=== PATIENT | female | born 1950 | race Caucasian/White ===

== ENCOUNTER 2017-10-06 15:04 | Inpatient (IN) | payer OTHER ==
[~2017-10-06] VITALS: Ht 154.9 cm; Wt 69.6 kg
[2017-10-06 15:14] LABS: BASOPHIL (%) 0.2 % (0-1); EOSINOPHIL COUNT 0.2 K/uL (0-0.3); HEMATOCRIT 43.9 % (36.0-46.0); IMMATURE GRANULOCYTE (%) 0.3 % (0.0-0.7); LYMPHOCYTE (%) 46.7 % (15-42); LYMPHOCYTE COUNT 4.2 K/uL (1.0-2.8); MCH 32.8 PG (29.0-34.0); MCHC 34.2 G/DL (30.0-36.0); MCV 95.9 FL (83-99); MONOCYTE (%) 8.9 % (3-12); MONOCYTE COUNT 0.8 K/uL (0-0.8); NEUTROPHIL (%) 41.9 % (45-76); NEUTROPHIL COUNT 3.7 K/uL (1.8-6.4); PLATELET COUNT 181 K/uL (156-360); RBC DIS.WIDTH-CV 13.8 % (11.8-14.6); RED BLOOD COUNT 4.58 M/uL (3.80-5.20)
[2017-10-06 15:26] LABS: AMYLASE 123 IU/L (1-118); CHLORIDE 105 mEq/L (99-109); POTASSIUM 4.2 mEq/L (3.7-5.4); SODIUM 139 mEq/L (136-147)
[2017-10-06 15:28] LABS: GLUCOSE 99 mg/dL (70-99)
[2017-10-06 15:31] LABS: SERUM ETHYL ALCOHOL < 10 mg/dL
[2017-10-06 15:32] LABS: UREA NITROGEN (BUN) 26 mg/dL (9-23)
[2017-10-06 15:34] LABS: LIPASE 40 U/L (1.0-51.0)
[2017-10-06 15:35] LABS: GFR ESTIMATE (CALCULATED) 59 mL/min/
[2017-10-06 17:35] LABS: APPEARANCE CLEAR ((CLEAR)); BILIRUBIN NEGATIVE; BLOOD NEGATIVE; COLOR YELLOW ((YELLOW)); GLUCOSE (STRIP) NEGATIVE; KETONES NEGATIVE; LEUKOCYTES NEGATIVE; NITRITE NEGATIVE; PROTEIN (STRIP) NEGATIVE; UCUL ADDED? NO; UROBILINOGEN 0.2 MG/DL (0.2-1.0)
[2017-10-06 17:46] LABS: AMPHETAMINE NEGATIVE (500 ng/mL); BARBITURATES NEGATIVE (200 ng/mL); BENZODIAZEPINES NEGATIVE (150 ng/mL); BUPRENORPHINE NEGATIVE (10 ng/mL); COCAINE NEGATIVE (150 ng/mL); METHADONE NEGATIVE (200 ng/mL); METHAMPHETAMINE NEGATIVE (500 ng/mL); OPIATES (MORPHINE) PRESUMPTIVE POSITIVE (100 ng/mL); OXYCODONE NEGATIVE (100 ng/mL); PHENCYCLIDINE NEGATIVE (25 ng/mL); PROPOXYPHENE NEGATIVE (300 ng/mL); THC CANNABINOIDS NEGATIVE (50 ng/mL); TRICYCLIC ANTIDEPRESSANTS NEGATIVE (300 ng/mL)
[2017-10-06] MEDS ORDERED: ENDOCET 5-3251 EACH PO (18:24)
[2017-10-06] MEDS ORDERED: LOPRESSOR25 MG PO (18:25)
[2017-10-06] MEDS ORDERED: XELJANZ5 MG PO (18:26)
[2017-10-06] MEDS ORDERED: LIPITOR40 MG PO (18:26)
[2017-10-06] MEDS ORDERED: NORVASC2.5 MG PO ×2 (18:26→18:32)
[2017-10-06] MEDS ORDERED: COZAAR50 MG PO (18:27)
[2017-10-06] MEDS ORDERED: ZANAFLEX4 M1 PO (18:28)
[2017-10-06] MEDS ORDERED: CYMBALTA60 MG PO (18:29)
[2017-10-06] MEDS ORDERED: HYDROCHLOROTHIA25 MG PO ×2 (18:29→18:34)
[2017-10-06] MEDS ORDERED: DESYREL100 MG PO (18:30)
[2017-10-06] MEDS ORDERED: PEPCID40 MG PO (18:31)
[2017-10-06] MEDS ORDERED: ATORVASTATIN CA40 MG PO (18:32)
[2017-10-06] MEDS ORDERED: METOPROLOL TART25 MG PO (18:33)
[2017-10-06] MEDS ORDERED: METHOTREXATE2.5 MG PO (18:34)
[2017-10-06] MEDS ORDERED: OMEPRAZOLE20 MG PO (18:35)
[2017-10-06] MEDS ORDERED: MAGNESIUM PO (18:37)
[2017-10-06] MEDS ORDERED: PROBIOTIC1 EAC1 PO (18:38)
[2017-10-06] MEDS ORDERED: LO-DOSE ASPIRIN81 M2 PO (18:38)
[2017-10-06] MEDS ORDERED: PRENATAL MULTI1 EAC7 PO (18:39)
[2017-10-06] MEDS ORDERED: NITROGLYCERIN0.4 MG SL (18:40)
[2017-10-06 21:56] VITALS: BP 131/46
[2017-10-06 22:01] VITALS: BP 102/48
[2017-10-06 23:01] VITALS: BP 116/53
[2017-10-07] VITALS (19 sets, daily range): BP systolic 87–134; BP diastolic 42–75
[2017-10-07 05:58] LABS: HEMATOCRIT 38.1 % (36.0-46.0); MCH 31.6 PG (29.0-34.0); MCHC 33.1 G/DL (30.0-36.0); MCV 95.5 FL (83-99); PLATELET COUNT 167 K/uL (156-360); RBC DIS.WIDTH-CV 13.9 % (11.8-14.6); RBC DIS.WIDTH-SD 49.3 % (39-53); RED BLOOD COUNT 3.99 M/uL (3.80-5.20); WHITE BLOOD COUNT 8.5 K/uL (4.1-10.2)
[2017-10-07 05:59] LABS: HEMOGLOBIN 12.6 G/DL (11.9-15.5)
[2017-10-07 06:18] LABS: ALBUMIN 3.4 G/DL (3.2-4.8); ALKALINE PHOSPHATASE 53 IU/L (3-129); ALT (GPT) 136 IU/L (3-49); AST (GOT) 115 IU/L (2-34); CHLORIDE 105 MEQ/L (99-109); CREATININE 1.1 MG/DL (0.6-1.3); GFR ESTIMATE (CALCULATED) 52 mL/min/; POTASSIUM 4.3 MEQ/L (3.7-5.4); SODIUM 141 MEQ/L (136-147); TOTAL BILIRUBIN 0.4 MG/DL (0.0-1.0); TOTAL PROTEIN 5.6 G/DL (6.4-8.3); UREA NITROGEN (BUN) 29 mg/dL (9-23)
[2017-10-07 06:26] LABS: GLUCOSE 174 mg/dL (70-99)
[2017-10-08 03:18] VITALS: BP 131/62
[2017-10-08 05:36] LABS: BASOPHIL (%) 0.1 % (0-1); EOSINOPHIL (%) 0.9 % (0-5); EOSINOPHIL COUNT 0.1 K/uL (0-0.3); HEMOGLOBIN 11.6 G/DL (11.9-15.5); IMMATURE GRANULOCYTE (%) 0.4 % (0.0-0.7); LYMPHOCYTE (%) 22.9 % (15-42); LYMPHOCYTE COUNT 1.6 K/uL (1.0-2.8); MCH 32.4 PG (29.0-34.0); MCHC 33.1 G/DL (30.0-36.0); MCV 97.8 FL (83-99); MONOCYTE (%) 9.1 % (3-12); MONOCYTE COUNT 0.6 K/uL (0-0.8); NEUTROPHIL (%) 66.6 % (45-76); NEUTROPHIL COUNT 4.6 K/uL (1.8-6.4); PLATELET COUNT 137 K/uL (156-360); RBC DIS.WIDTH-CV 14.5 % (11.8-14.6); RBC DIS.WIDTH-SD 51.9 % (39-53); RED BLOOD COUNT 3.58 M/uL (3.80-5.20); WHITE BLOOD COUNT 6.9 K/uL (4.1-10.2)
[2017-10-08 06:04] LABS: ALKALINE PHOSPHATASE 43 IU/L (3-129); ALT (GPT) 81 IU/L (3-49); CHLORIDE 107 MEQ/L (99-109); DIRECT BILIRUBIN 0.1 mg/dL (0.0-0.3); GFR ESTIMATE (CALCULATED) 59 mL/min/; POTASSIUM 4.2 MEQ/L (3.7-5.4); SODIUM 142 MEQ/L (136-147); TOTAL PROTEIN 5.2 G/DL (6.4-8.3); UREA NITROGEN (BUN) 22 mg/dL (9-23)
[2017-10-08 06:06] LABS: AST (GOT) 43 IU/L (2-34); GLUCOSE 120 mg/dL (70-99); TOTAL BILIRUBIN 0.3 MG/DL (0.0-1.0)
[2017-10-08 08:00] VITALS: BP 119/56
[2017-10-08 08:58] VITALS: BP 128/64
[2017-10-08 12:11] VITALS: BP 134/66
[2017-10-08 12:40] VITALS: BP 134/66
== END 2017-10-08 14:14 | disposition home or self-care (01) | DRG 87 ==
LOC: TRA 15:04 → EDOF 19:34 → 4WEST 19:34 → ENRESERV 19:36 → 4WEST 21:46 → ENRESERV 10-07 11:24 → 3EAST 10-07 15:36
PROVIDERS: Emergency Medicine; Physician Assistant; Surgery
DX: S06.6X1A Traumatic subarachnoid hemorrhage with loss of consciousness of 30 minutes or less, initial encounter (principal); W10.9XXA Fall (on) (from) unspecified stairs and steps, initial encounter; S00.03XA Contusion of scalp, initial encounter; S00.12XA Contusion of left eyelid and periocular area, initial encounter; M06.9 Rheumatoid arthritis, unspecified; E66.9 Obesity, unspecified; Z68.28 Body mass index [BMI] 28.0-28.9, adult; M47.812 Spondylosis without myelopathy or radiculopathy, cervical region; K57.30 Diverticulosis of large intestine without perforation or abscess without bleeding; I25.118 Atherosclerotic heart disease of native coronary artery with other forms of angina pectoris; I10 Essential (primary) hypertension; G89.29 Other chronic pain; M51.34 Other intervertebral disc degeneration, thoracic region; E04.1 Nontoxic single thyroid nodule; Z90.710 Acquired absence of both cervix and uterus; Z90.49 Acquired absence of other specified parts of digestive tract; M79.7 Fibromyalgia; I25.111 Atherosclerotic heart disease of native coronary artery with angina pectoris with documented spasm
CPT/HCPCS: 70450; 70486; 71045; 71260; 72125; 72129; 72132; 73080; 74177; 80048; 80053; 80076; 81003; 82150; 83690; 84999; 85025; 85027; 86850; 86900; 86901; 87641; 99281; 99285; G0480; J1170; J2270; J7050; J7120